=== PATIENT | male | born 1990 | race Caucasian/White ===

== ENCOUNTER 2018-01-01 12:08 | Emergency (ER) | payer BC, SELFPAY ==
[2018-01-01 12:14] VITALS: BP 127/66; PULSE 66; RESP 16; TEMP 37; O2SAT 98
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
[2018-01-01] MEDS: HYDROcodone 5/Acetaminophen 325 TAB PO ×2 (12:30→13:09)
[2018-01-01] MEDS: Ibuprofen 800 MG TAB PO (13:10)
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
[2018-01-01 13:38] VITALS: PULSE 63; RESP 16
== END 2018-01-01 13:34 | disposition home or self-care (01) ==
PROVIDERS: Emergency Provider Emergency Medicine
DX: S42.022A Displaced fracture of shaft of left clavicle, initial encounter for closed fracture (principal); V18.0XXA Pedal cycle driver injured in noncollision transport accident in nontraffic accident, initial encounter; Y93.55 Activity, bike riding
CPT/HCPCS: 23500; 71045; 73000; 73030; L3650